=== PATIENT | female | born 1950 | race Caucasian/White ===

== ENCOUNTER → 2018-06-24 | Outpatient (CLI) | payer MEDICARE ==
[2018-06-24 11:11] VITALS: PULSE 94; TEMP 98; BMI 25.8
--- NOTE | 2018-06-24 11:42 | P.HPOB ---
History of Present Illness H&P Date: 06/24/18 Chief Complaint: The patient is here for her routine gynecologic exam and mammogram. This is a 68-year-old with an LMP of 1973. The patient is status post vaginal hysterectomy and later BSO for benign reasons. She is without gynecologic complaints. Review of Systems Weight has been stable. She denies cardiac and G.I. problems. Respiratory: she is getting over bronchitis. She denies maltreatment or problems with falling. : she does have occasional leak with hard coughing which has been more of a problem during her recent bronchitis. Past Medical History Past Medical History: Asthma, COPD, Fibromyalgia, Hypertension, Pulmonary Embolus (PE), Respiratory Disorder Additional Past Medical History / Comment(s): Ascending Aorta Anurism, Sjogren' s syndrome. History of osteoporosis status post 5 years use of bisphosphonates. Seasonal allergies. PAST [employer] HISTORY: She has no history of STDs. She has had a vaginal hysterectomy and later BSO for benign reasons. History of Any Multi-Drug Resistant Organisms: None Reported Past Surgical History: Cholecystectomy, Hysterectomy (Vaginal hysterectomy 1981 and later BSO.) Additional Past Surgical History / Comment(s): Cheryl fundal plication. Hand surgery. Colonoscopy 2012(3rd) Past Psychological History: No Psychological Hx Reported Smoking Status: Never smoker Past Alcohol Use History: Occasional (4 per week) Past Drug Use History: None Reported Additional History: She is . She spends much of her mahmood in [place]. - Past Family History Father Family Medical History: Cancer (Leukemia) Mother Family Medical History: Cancer (Leukemia) Brother(s) Family Medical History: Hypertension Medications and Allergies Home Medications Medication Instructions Recorded Confirmed Type Albuterol Inhaler [Ventolin Hfa PRN 06/24/18 History Inhaler] Amitriptyline HCl [Elavil] PO HS 06/24/18 06/24/18 History Benzonatate [Benzonatate Perle] PO TID 06/24/18 History EPINEPHrine (Auto Inject) [Epipen] DIRECTED PRN 06/24/18 History Estradiol [Vagifem] PO WEEKLY 06/24/18 History Fluticasone Propionate [Flonase PO BID 06/24/18 History Allergy Relief] Fluticasone/Salmeterol [Advair Hfa INHALATION BID 06/24/18 History 230-21 Mcg Inhaler] Montelukast [Singulair] PO DAILY 06/24/18 History Tiotropium 18 Mcg/Puff [Spiriva] INHALATION BID 06/24/18 History Allergies Allergy/AdvReac Type Severity Reaction Status Date / Time No Known Allergies Allergy Unverified 06/24/18 11:04 Exam Vital Signs Temp Pulse 06/24/18 11:04 98.0 F 94 Intake and Output 06/23/18 06/24/18 06/24/18 22:59 06:59 14:59 Other: Weight 67.132 kg Height 5'3.5 inches, weight 148 pounds, BMI 25.8. This is a well-developed well-nourished white female who is alert and oriented times 3 in no acute distress. HEENT: Within normal limits. NECK: Supple without mass or thyromegaly. CHEST AND LUNGS: Clear to auscultation, but coughed frequently when taking deep breaths. HEART: Regular rate and rhythm. BREASTS: Are without mass or discharge. AXILLARY EXAM: Negative for adenopathy. BACK: Negative for CVA tenderness. ABDOMEN: Soft, nontender, without palpable masses. PELVIC EXAM: External genitalia appears normal with mild to moderate atrophy. Vagina appears normal is mild to moderate atrophy. There is no evidence of prolapse. There is small urethral mobility with coughing and no significant cystocele with Valsalva. No urinary leakage was demonstrated. Bimanual examination is negative for mass or tenderness. RECTAL EXAM: Rectovaginal exam is negative for mass or tenderness and is negative for occult blood. EXTREMITIES: Nontender. IMPRESSION: 1. 68-year-old menopausal female status post vaginal hysterectomy and later BSO for benign reasons with normal gynecologic exam. 2. Mild stress incontinence noted with coughing, exacerbated by her recent bronchitis. 3. History of osteoporosis status post more than 5 years use of bisphosphonates in the past. PLAN: 1. Pap smears have been discontinued. 2. Self breast awareness was discussed with the patient. 3. Screening mammogram will be done today. 4. Osteoporosis management was discussed. Bone density testing will be done today. 5. She has declined flu shots. I recommended that she reconsider this because of her pulmonary history. 6. She will return in one year.
--- NOTE | 2018-06-25 08:41 | MM ---
Reason for exam: screening (asymptomatic). Last mammogram was performed 1 year ago. History: Patient is postmenopausal. Took estrogen for 12 years. Taking unspecified hormones. Physical Findings: A clinical breast exam by your physician is recommended on an annual basis and results should be correlated with mammographic findings. MG 3D Screening Mammo W/Cad Bilateral CC and MLO view(s) were taken. Prior study comparison: June 12, 2017, bilateral MG 3d screening mammo w/cad. May 29, 2016, bilateral MG 3d screening mammo w/cad. The breast tissue is heterogeneously dense. This may lower the sensitivity of mammography. There are benign appearing vascular calcifications bilaterally. There is no discrete abnormality. ASSESSMENT: Benign, BI-RAD 2 RECOMMENDATION: Routine screening mammogram of both breasts in 1 year.
== END | disposition home or self-care (01) ==
LOC: WWCWWP 10:33
PROVIDERS: ATTEND Obstetrics & Gynecology
DX: Z12.31 Encounter for screening mammogram for malignant neoplasm of breast (principal); Z78.0 Asymptomatic menopausal state
CPT/HCPCS: 77063; 77067